=== PATIENT | female | born 1990 | race Caucasian/White ===

== ENCOUNTER 2025-03-28 01:40 | Inpatient (IN) | payer OTHER ==
[~2025-03-28 01:40] MED LIST: ELECTROLYTE-148 SOLN 1,000 ML IV SCH
[2025-03-28] MEDS: DEXTROSE 5%-LACTATED RINGERS 1,000 ML IV SCH (02:15)
[2025-03-28 02:24] LABS: ABSOLUTE IMMATURE GRANULOCYTES 0.33 x10^3/uL (0.0-0.031); BASOPHILS # 0.03 x10^3/uL (0.01-0.08); EOSINOPHIL % 0.3 % (0.7-5.8); EOSINOPHILS # 0.02 x10^3/uL (0.04-0.36); HEMATOCRIT 32.1 % (34.1-44.9); HEMOGLOBIN 10.9 g/dL (11.2-15.7); MEAN CELL VOLUME 82.1 fl (79.4-94.8); MEAN PLT VOLUME 9.3 fl (9.4-12.3); MONOCYTE # 0.89 x10^3/uL (0.24-0.86); MONOCYTE % 11.3 % (4.7-12.5); PLATELET COUNT 332 x10^3/uL (182-369); RDW 15.8 % (12.1-16.8)
[2025-03-28] MEDS ORDERED: OXYTOCIN 20 UNITS in 0.9% NS 20 UNIT/1,000 ML INFUS.BAG IV ONE (02:26)
[2025-03-28 02:36] LABS: INR 0.88 (0.83-1.09); PROTHROMBIN TIME (PATIENT) 9.6 SEC (9.7-13.0)
[2025-03-28 02:39] LABS: ACTIVATED PTT 27.2 SECONDS (25.2-36.5)
[2025-03-28] MEDS: OXYTOCIN 20 UNITS in 0.9% NS 20 UNIT/1,000 ML INFUS.BAG IV SCH (02:42)
[2025-03-28 02:55] VITALS: BMI 31.9
[2025-03-28 02:58] LABS: POTASSIUM 3.7 mmol/L (3.5-5.1)
[2025-03-28 02:59] LABS: CALCIUM 9.9 mg/dL (8.5-10.1)
[2025-03-28 03:00] LABS: BLOOD UREA NITROGEN 9.5 mg/dL (7-18)
[2025-03-28 03:03] LABS: CREATININE 0.7 mg/dL (0.55-1.3)
[2025-03-28] MEDS ORDERED: oxyCODONE HCL 5 MG TABLET PO PRN (03:07)
[2025-03-28] MEDS ORDERED: METHYLERGONOVINE MALEATE 0.2 MG/1 ML AMP IM PRN (03:07)
[2025-03-28] MEDS ORDERED: BISACODYL 10 MG SUPP.RECT RC PRN (03:07)
[2025-03-28 03:39] LABS: HIV INTERPRETATION NEGATIVE (NEGATIVE)
[2025-03-28] MEDS: BENZOCAINE 20% 57 GM BOTTLE TP PRN (05:23)
[2025-03-28] MEDS: WITCH HAZEL 50% (TUCKS) 40 PAD/JAR PAD TP PRN (05:23)
[2025-03-28] MEDS: BENZOCAINE 28 GM HEMORRHOIDAL OINTMENT TP PRN (05:24)
[2025-03-28] MEDS: PRENATAL VITAMINS W/ FOLIC ACID TABLET (FP) PO SCH (10:27)
[2025-03-28] MEDS: ACETAMINOPHEN 325 MG TABLET (FP) PO PRN (10:28)
[2025-03-28] MEDS: FERROUS SO4 325 MG TABLET (FP) PO SCH (10:28)
[2025-03-28 10:33] LABS: POC NITRAZINE POS
[2025-03-29 07:49] LABS: ABSOLUTE IMMATURE GRANULOCYTES 0.31 x10^3/uL (0.0-0.031); BASOPHILS # 0.03 x10^3/uL (0.01-0.08); EOSINOPHIL % 0.6 % (0.7-5.8); EOSINOPHILS # 0.07 x10^3/uL (0.04-0.36); HEMATOCRIT 24.4 % (34.1-44.9); MCHC 32.8 g/dl (32.2-35.5); MEAN CELL VOLUME 83.8 fl (79.4-94.8); MEAN PLT VOLUME 9.1 fl (9.4-12.3); MONOCYTE # 0.93 x10^3/uL (0.24-0.86); MONOCYTE % 7.7 % (4.7-12.5); PLATELET COUNT 270 x10^3/uL (182-369); RDW 15.9 % (12.1-16.8)
[2025-03-29] MEDS: ALBUTEROL SO4 HFA INHALER IH PRN (15:22)
[2025-03-29] MEDS: SENNOSIDES/DOCUSATE COMBO (SENNA PLUS) TABLET (UD) PO PRN (20:41)
[2025-03-29] MEDS: OXYMETAZOLINE 0.05% NASAL SOLUTION 15 ML BOTTLE NS PRN (22:40)
[2025-03-29] MEDS: BENZOCAINE/MENTH/CETYLPYRD CL 1 EACH LOZENGE MM PRN (22:40)
[2025-03-30 10:09] VITALS: BP 99/59; PULSE 98; RESP 18; TEMP 98.6
== END 2025-03-30 13:00 | disposition home or self-care (01) | DRG 807 ==
LOC: JLDR 01:40 → J3W 05:21
PROVIDERS: ADMIT Obstetrics & Gynecology; ATTEND Obstetrics & Gynecology
PROC: 0W8NXZZ Division of Female Perineum, External Approach (ICD-10-PCS; principal; 2025-03-28)
PROC: 10E0XZZ Delivery of Products of Conception, External Approach (ICD-10-PCS; 2025-03-28)
DX: O62.3 Precipitate labor (principal); Z37.0 Single live birth; O66.0 Obstructed labor due to shoulder dystocia; Z3A.39 39 weeks gestation of pregnancy
CPT/HCPCS: 36415; 59409; 80048; 83986-QW; 85025; 85610; 85730; 86780; 86850; 86900; 86901; 87389